=== PATIENT | female | born 1950 | race Two or more races ===

== ENCOUNTER 2022-05-28 14:26 | Emergency (ER) | payer OTHER ==
[~2022-05-28] VITALS: Ht 165.1 cm; Wt 81.6 kg
[~2022-05-28 14:26] MED LIST: CELEBREX100 MG PO; NEURONTIN600 MG PO
[2022-05-28] MEDS ORDERED: ENALAPRIL MALE2.5 MG PO (14:55)
[2022-05-28] MEDS ORDERED: JANUMET XR 50-1 EAC1 PO (14:56)
== END 2022-05-28 23:08 | disposition left against medical advice (07) ==
LOC: ER 14:26
DX: B34.9 Viral infection, unspecified (principal)